=== PATIENT | female | born 1945 | race Caucasian/White ===

== ENCOUNTER 2018-11-02 09:27 | Day surgery (SDC) | payer MEDICARE, BC ==
[~2018-11-02 09:27] MED LIST: Acetaminophen TAB* 325 MG PO PRN; Buffered Lidocaine 1% SYRIN* 1 ML/SYRINGE INTRADERM ONE
[2018-11-02] MEDS ORDERED: Midazolam* 1 MG/ML 2 ML VIAL (2 MG) ONE (11:02)
[2018-11-02] MEDS ORDERED: fentaNYL* 50 MCG/ML 2 ML VIAL (100 MCG VIAL) ONE (11:39)
[2018-11-02] MEDS ORDERED: Propofol* 10 MG/ML 20 ML BTL ONE (12:15)
[2018-11-02 12:51] VITALS: BP 97/70
[2018-11-02] MEDS ORDERED: Proparacaine 0.5% OPHTH.SOL* 15 ML BTL ONE (13:15)
[2018-11-02] MEDS ORDERED: Ketorolac 0.5% OPHTH (NF) 0.5 % 5 ML BTL ONE (13:15)
[2018-11-02] MEDS ORDERED: Lidocaine 2% EPI 1:200000 MPF*10-20 ML VIAL ONE (13:15)
[2018-11-02] MEDS ORDERED: Lidocaine 1%* 5 ML VIAL ONE (13:15)
[2018-11-02] MEDS ORDERED: Neomycin/Polymy/Dex OPTH.SUSP* MAXITROL 0.1% 5 ML ONE (13:15)
[2018-11-02] MEDS ORDERED: Povidone Iodine 5% OPTH* 30 ML BTL ONE (13:15)
[2018-11-02] MEDS ORDERED: acetaZOLAMIDE TAB* 250 MG ONE (13:15)
[2018-11-02] MEDS ORDERED: Cyclopentolate 1% OPTH.SOL* 2 ML BTL ONE (13:15)
[2018-11-02] MEDS ORDERED: Phenylephrine OPHTH SOL 2.5%* 2 ML ONE (13:15)
--- NOTE | 2018-11-02 13:48 | OP ---
OPERATIVE NOTE: DATE OF OPERATION: 11/02/18 DATE OF : 45 SURGEON: Geovani Kuhn M.D. PREOPERATIVE DIAGNOSIS: Cataract, right eye. POSTOPERATIVE DIAGNOSIS: Cataract, right eye. OPERATIVE PROCEDURE: Extracapsular cataract extraction with intraocular lens implant, right eye. PROCEDURE: The patient was brought to the operating room after being given 1/2% Alcaine with epineph rine drops in the preoperative area. The eye was prepped and draped in the usual sterile fashion. S terile drape and eyelid speculum were placed. Again, topical 1/2% Alcaine with epinephrine was given . A paracentesis incision was made at the 9 o'clock position with the No.75 blade. Clear cornea inc ision 2.2 x 2.2-mm was created at the 12 o'clock position starting at the anterior limbus using the 2 .2-mm keratome. The anterior chamber was irrigated with 0.4 mL of 1% non-preservative intracameral l idocaine and filled with DisCoVisc. A capsulorrhexis was completed using the cystotome and the Utrat a forceps. Hydrodissection was performed with balanced salt solution. The lens nucleus was removed w ith the Phacoemulsification handpiece without incident. Cortex was removed with the irrigation-aspir ation handpiece. The capsular bag was re-inflated using DisCoVisc and an SN60WF 22.5 implant was ins erted with the shooter. The irrigation-aspiration handpiece was used to remove all residual DisCoVis c. The eye was refilled with balanced salt solution and the wound checked and found to be watertight . Topical Maxitrol drops were given. [id number]/[facility] #: [id number]
== END 2018-11-02 12:48 | disposition home or self-care (01) ==
LOC: OREAST 09:27
PROVIDERS: ATTEND Specialist
DX: H25.811 Combined forms of age-related cataract, right eye (principal); Z85.038 Personal history of other malignant neoplasm of large intestine
CPT/HCPCS: A9270-GY; J2250; J2704; J3010; V2632

== ENCOUNTER 2019-04-02 16:29 | Emergency (ER) | payer MEDICARE, BC ==
--- NOTE | 2019-04-02 16:54 | ED ---
GI/ HPI - HPI Summary HPI Summary: Patient is a 73 y/o F w/ stage 4 colon cancer who presents to [facility] with complaints of blood in stool. Sx onset earlier today, 04/02/19 within the past few hours. She reports there were "tablespoons" of blood. On triage, it is reported that the patient had abdominal pain, but in the room patient denies pain and states "I feel fine" otherwise. Patient denies pervious similar episodes. She reports that she had surgery for her cancer 4 years ago and had been on pill medications for the past three years. However, cancer metastasized and patient was taken off all treatment in Feb 2019 with exception of an opium tincture every few days to help with chronic diarrhea. Patient is followed by Dr. Villatoro. She denies Hx of hemorrhoids. On retail presentation specialist, nothing is noted to aggravate/alleviate Sx. In room, pulse 92, o2 95 on RA, BP 153/88. Home medications and allergies are reviewed. - History of Current Complaint Chief Complaint: EDGIBleed Time Seen by Provider: 04/02/19 16:35 Stated Complaint: WEAKNESS Hx Obtained From: Patient Onset/Duration: Started Hours Ago Timing: Intermittent Current Severity: None - pain denied in the room, but on triage it is reported that the patient had complaints of abdominal pain Pain Intensity: 0 Associated Signs and Symptoms: Positive: Blood w/Stool, Abdominal Pain - pain denied in the room, but on triage it is reported that the patient had complaints of abdominal pain Aggravating Factor(s): Nothing Alleviating Factor(s): Nothing - Allergy/Home Medications Allergies/Adverse Reactions: Allergies Allergy/AdvReac Type Severity Reaction Status Date / Time No Known Allergies Allergy Verified 04/02/19 17:04 PMH/Surg Hx/FS Hx/Imm Hx Endocrine/Hematology History: Denies: Hx Diabetes Cardiovascular History: Denies: Hx Hypertension GI History: Reports: Other GI Disorders History: Denies: Hx Dialysis, Hx Renal Disease Sensory History: Reports: Hx Cataracts - darrin, Hx Contacts or Glasses - glasses Denies: Hx Hearing Aid Opthamlomology History: Reports: Hx Cataracts - darrin, Hx Contacts or Glasses - glasses - Cancer History Cancer Type, Location and Year: Colon 2014. Retro peritoneum. Peritoneum Hx Chemotherapy: Yes - last dose 05/[address] peoples - Surgical History Surgery Procedure, Year, and Place: Jul [id number], Rt Femur-10/2014, tubal , reversal ostomy 08/27 Hx Anesthesia Reactions: No Infectious Disease History: No Infectious Disease History: Denies: Traveled Outside the [place] in Last 30 Days - Social History Alcohol Use: Occasionally Alcohol Amount: wine Substance Use Type: Reports: None Smoking Status (MU): Never Smoked Tobacco Review of Systems Positive: Abdominal Pain - pain denied in the room, but on triage it is reported that the patient had complaints of abdominal pain Genitourinary: Other - positive - blood w/ stool All Other Systems Reviewed And Are Negative: Yes Physical Exam - Summary Physical Exam Summary: Appearance: The patient is well-nourished in no acute distress and in no acute pain. Skin: The skin is warm and dry, and skin color reflects adequate perfusion. HEENT: The head is normocephalic and atraumatic. The pupils are equal and reactive. The conjunctivae are clear and without drainage. Nares are patent and without drainage. Mouth reveals moist mucous membranes, and the throat is without erythema and exudate. The external ears are intact. The ear canals are patent and without drainage. The tympanic membranes are intact. Neck: The neck is supple with full range of motion and non-tender. There are no carotid bruits. There is no neck vein distension. Respiratory: Chest is non-tender. Lungs are clear to auscultation and breath sounds are symmetrical and equal. Cardiovascular: Heart is regular rate and rhythm. There is no murmur or rub auscultated. There is no peripheral edema and pulses are symmetrical and equal. Abdomen: The abdomen is soft and non-tender. There are normal bowel sounds heard in all four quadrants and there is no organomegaly palpated. Rectal Exam: No external hemorrhoids noted. Musculoskeletal: There is no back tenderness noted. Extremities are non-tender with full range of motion. There is good capillary refill. There is no peripheral edema or calf tenderness elicited. Neurological: Patient is alert and oriented to person, place and time. The patient has symmetrical motor strength in all four extremities. Cranial nerves are grossly intact. Deep tendon reflexes are symmetrical and equal in all four extremities. Psychiatric: The patient has an appropriate affect and does not exhibit any anxiety or depression. Triage Information Reviewed: Yes Vital Signs On Initial Exam: Initial Vitals Temp Pulse Resp BP Pulse Ox 98.9 F 88 20 158/95 99 04/02/19 16:36 04/02/19 16:36 04/02/19 16:36 04/02/19 16:36 04/02/19 16:36 Vital Signs Reviewed: Yes Procedures - Sedation Patient Received Moderate/Deep Sedation with Procedure: No Diagnostics - Vital Signs Vital Signs Temp Pulse Resp BP Pulse Ox 04/02/19 16:36 98.9 F 88 20 158/95 99 - Laboratory Result Diagrams: 04/02/19 16:55 04/02/19 16:55 Lab Statement: Any lab studies that have been ordered have been reviewed, and results considered in the medical decision making process. GIGU Course/Dx - Course Course Of Treatment: Ms. Dawson has recurrent colon cancer. Today she saw about a tablespoon of blood with stool when she moved her bowels a couple of different times. She denies any symptoms. She has no pain. She was nontoxic in appearance with stable vitals. Rectal exam was unremarkable aside from a small amount of obvious blood. Labs are unremarkable. I recommended she follow up with Dr. Villatoro to consider further evaluation such as colonoscopy. She will need to return if her bleeding becomes significant. - Diagnoses Provider Diagnoses: Rectal bleeding Discharge ED - Sign-Out/Discharge Documenting (check all that apply): Patient Departure - discharge - Discharge Plan Condition: Stable Disposition: HOME Patient Education Materials: Rectal Bleeding (ED) Referrals: Rosa M Villatoro MD [Primary Care Provider] - 3 Days Additional Instructions: PLEASE RETURN TO ED FOR ANY NEW OR WORSENING SYMPTOMS. PLEASE FOLLOW UP WITH DR. VILLATORO WITHIN 1-3 DAYS. - Billing Disposition and Condition Condition: STABLE Disposition: Home - Attestation Statements Document Initiated by Jed: Yes Documenting Scribe: CRISTINA RODRIGUEZ Provider For Whom Jed is Documenting (Include Credential): ERNIE SOTO MD Scribe Attestation: ICRISTINA , scribed for ERNIE SOTO MD on 04/02/19 at 2127. Scribe Documentation Reviewed: Yes Provider Attestation: The documentation as recorded by the CRISTINA langford accurately reflects the service I personally performed and the decisions made by me, ERNIE SOTO MD Status of Scribe Document: Viewed
[2019-04-02 17:21] LABS: Albumin 3.8 g/dL (3.2-5.2); Albumin/Globulin Ratio 1.2 (1-3); BUN/Creatinine Ratio 23.1 (8-20); Calcium 9.3 mg/dL (8.6-10.3); EGFR African American 108.1 (>60); EGFR Non-African American 89.3 (>60); Globulin 3.3 g/dL (2-4); Potassium 3.7 mmol/L (3.5-5.0); Total Bilirubin 0.3 mg/dL (0.2-1.0); Total Protein 7.1 g/dL (6.4-8.9)
[2019-04-02 17:45] LABS: Activated Partial Thrombo Time 33.1 seconds (26.0-38.0); INR 1.04 (0.82-1.09)
[2019-04-02 18:26] LABS: ABS Basophils 0.1 10^3/ul (0-0.2); ABS Eosinophils 0.1 10^3/ul (0-0.6); ABS Monocytes 0.5 10^3/ul (0-0.8); ABS Neutrophils 8.1 10^3/ul (1.5-7.7); Eosinophil % 0.7 %; Hematocrit 38 % (35-47); Hemoglobin 12.4 g/dL (12.0-16.0); Mean Corpuscular HGB Conc 33 g/dL (31-36); Mean Corpuscular Hemoglobin 33 pg (27-31); Mean Corpuscular Volume 101 fL (80-97); Mean Platelet Volume 7.3 fL (7.4-10.4); Platelet Count 338 10^3/uL (150-450); Red Cell Distribution Width 15 % (10-15); White Blood Count 9.8 10^3/uL (3.5-10.8)
[2019-04-02 18:57] VITALS: BP 126/99
== END 2019-04-02 18:53 | disposition home or self-care (01) ==
LOC: ED 16:29
DX: K62.5 Hemorrhage of anus and rectum (principal); C18.9 Malignant neoplasm of colon, unspecified; R10.9 Unspecified abdominal pain; Z92.21 Personal history of antineoplastic chemotherapy
CPT/HCPCS: 36415; 80053; 85025; 85610; 85730; 99283